=== PATIENT | female | born 1985 | race Caucasian/White ===

== ENCOUNTER 2024-09-15 00:30 | Emergency (ER) | payer MEDICAID, SELFPAY ==
--- NOTE | ~2024-09-15 | XR_ITS ---
CLINICAL HISTORY: ring and pinky injuries 3 view right hand Comparison: None Findings: Acute comminuted intra-articular fracture with impaction overriding of the proximal aspect of the middle phalanx of the ring finger. Moderate angulation of the oblique image (apex directed volar). No dislocation. Soft tissue swelling is multifocal and nonspecific including 4th and 5th digits. Superficial brace opacities in the [id number]. IMPRESSION: 1. Acute comminuted intra-articular fracture involving the proximal aspect of the middle phalanx of the 4th digit. 2. No dislocation. This document has been electronically signed by: Jw Turcios MD on 09/15/2024 02:17:47
--- NOTE | ~2024-09-15 | XR_ITS ---
CLINICAL HISTORY: ring finger lateral only due to metal splint Right fingers, 1 view COMPARISON: CR - XR HAND RT MIN 3V - 09/15/24 01:47 EST FINDINGS: Similar-appearing comminuted intra-articular fracture of the proximal aspect of the 4th middle phalanx with associated soft tissue swelling. No dislocation. IMPRESSION: Similar-appearing 4th middle phalanx fracture. This document has been electronically signed by: Jerod Fragoso MD on 09/15/2024 04:59:46
--- NOTE | ~2024-09-15 | XR_ITS ---
CLINICAL HISTORY: lacerations to tips of ring and pinky 3 view left hand Comparison: None Findings: Portions of the hands obscured with flexion of the time of the imaging. Soft tissue swelling nonspecific including 1st, 2nd, and 3rd imaged digits. No definite radiopaque retained foreign body in the [id number]. No displaced fracture or dislocation accounting for positioning. IMPRESSION: 1. No acute fracture or dislocation. 2. Soft tissue swelling, including imaged 2nd and 3rd digits. This document has been electronically signed by: Jw Turcios MD on 09/15/2024 02:17:30
[2024-09-15 00:36] VITALS: BP 123/79; BP 142/94; PULSE 106; PULSE 83; RESP 18; TEMP 36.7; O2SAT 9; O2SAT 98; BMI 25.8
[2024-09-15 01:01] VITALS: BP 123/79; PULSE 83; RESP 18; TEMP 36.7; O2SAT 98
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
[2024-09-15] MEDS: Acetaminophen 325 MG TABLET 975 MG PO (01:24)
[2024-09-15] MEDS: Ketorolac Tromethamine 30 MG/ML VIAL IM (01:25)
[2024-09-15] MEDS: BUPivacaine MPF 0.25 % 10 ML VIAL INFILTRATI (02:32)
[2024-09-15] MEDS: Lidocaine HCl 1 % MPF 5 ML VIAL 10 ML INFILTRATI (02:32)
[2024-09-15 04:23] VITALS: BP 96/67; PULSE 64; RESP 12; TEMP 36.3; O2SAT 100
[2024-09-15] MEDS: cephALEXin 500 MG CAPSULE 1000 MG PO (04:24)
[2024-09-15] MEDS: Bacitracin Oint 0.9 GM PACKET 2 APPL TOPICAL (04:25)
[2024-09-15 05:28] VITALS: BP 120/63; PULSE 65; RESP 16; TEMP 36.9; O2SAT 100
[2024-09-15] MEDS: Bacitracin Oint 0.9 GM PACKET 1 APPL TOPICAL (06:19)
[2024-09-15 06:20] VITALS: BP 120/63; PULSE 87; RESP 16; TEMP 36.6; O2SAT 100
[2024-09-15 06:31] VITALS: BP 120/63; PULSE 87; RESP 16; TEMP 36.6; O2SAT 100
== END 2024-09-15 06:39 | disposition home or self-care (01) ==
PROVIDERS: Emergency Provider Emergency Medicine
DX: S62.624A Displaced fracture of middle phalanx of right ring finger, initial encounter for closed fracture (principal); S61.215A Laceration without foreign body of left ring finger without damage to nail, initial encounter; S61.217A Laceration without foreign body of left little finger without damage to nail, initial encounter; X99.1XXA Assault by knife, initial encounter; M79.641 Pain in right hand; Y93.9 Activity, unspecified; Y92.9 Unspecified place or not applicable; Y99.9 Unspecified external cause status; Z98.51 Tubal ligation status
CPT/HCPCS: 12002; 26725; 29130; 73130; 73140; 96372; 99284; J0665; J1885; J2003

== ENCOUNTER → 2024-09-15 01:18 | Outpatient (BNV) | payer MEDICAID, SELFPAY | PROVIDERS: Emergency Provider Emergency Medicine; Visit Provider Radiology Neuroradiology | DX: S62.624A Displaced fracture of middle phalanx of right ring finger, initial encounter for closed fracture (principal); R22.32 Localized swelling, mass and lump, left upper limb | CPT/HCPCS: 73130; 73140 ==